=== PATIENT | male | born 1985 | race American Indian/Alaskan Native ===

== ENCOUNTER 2018-10-17 19:46 | Emergency (ER) | payer OTHER ==
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
[2018-10-17 23:53] VITALS: BP 125/82
== END 2018-10-17 23:53 | disposition home or self-care (01) ==
LOC: ED 19:46
DX: M62.830 Muscle spasm of back (principal); V49.49XA Driver injured in collision with other motor vehicles in traffic accident, initial encounter; Y93.89 Activity, other specified; Y92.89 Other specified places as the place of occurrence of the external cause; Y99.8 Other external cause status
CPT/HCPCS: 72100